=== PATIENT | female | born 1990 | race Caucasian/White ===

== ENCOUNTER 2018-12-31 09:55 | Emergency (ER) | payer MEDICAID, OTHER ==
[2018-12-31] MEDS ORDERED: MAG HYDROX/AL HYDROX/SIMETH SUSP 30 ML UDCUP PO ONE (11:53)
[2018-12-31] MEDS ORDERED: METOCLOPRAMIDE HCL ORAL SOLN 10 MG/10 ML UDCUP PO ONE (11:53)
[2018-12-31] MEDS ORDERED: LIDOCAINE 2% VISCOUS SOLN 20 ML UDCUP PO ONE (11:53)
--- NOTE | 2018-12-31 11:58 | ER Document Report ---
ED Cardiac - General Chief Complaint: Palpitations Stated Complaint: POSSIBLE HEART PALPITATIONS Time Seen by Provider: 12/31/18 11:00 Primary Care Provider: JEROD LESLIE NP [Primary Care Provider] - Follow up as needed Notes: Healthy 28-year-old female presents the emergency department with chief complaint of a left burning chest pain that started last night, left arm numbness, and left neck pain. Patient states that the symptoms have persisted and nothing makes them better or worse. Historically, patient would have a burning sensation in her chest and throat after eating before bed and laying flat but she did not eat anything last night prompting her concern. Patient denies any diaphoresis, denies any acute shortness of breath but complains of ongoing shortness of breath secondary to anxiety, denies any nausea or vomiting, denies recent illness. Father had a CABG at age 55. Patient is not a smoker and recently quit chewing nicotine gum 1 month ago. Patient recently started a new job that is high stress. TRAVEL OUTSIDE OF THE [place] IN LAST 30 DAYS: No - Related Data Allergies/Adverse Reactions: No Known Allergies Allergy (Verified 12/31/18 10:07) Past Medical History - Social History Smoking Status: Never Smoker Chew tobacco use (# tins/day): No Frequency of alcohol use: None Drug Abuse: None Family History: Reviewed & Not Pertinent Patient has suicidal ideation: No Patient has homicidal ideation: No Pulmonary Medical History: Reports: Hx Asthma Psychiatric Medical History: Reports: Hx Depression, Hx Personality Disorder - borderline Past Surgical History: Reports: Hx Section - x1, Hx Orthopedic Surgery - left miniscus - Immunizations Hx Diphtheria, Pertussis, Tetanus Vaccination: Yes Review of Systems - Review of Systems Constitutional: See HPI EENT: No symptoms reported Cardiovascular: See HPI Respiratory: See HPI Gastrointestinal: No symptoms reported Genitourinary: See HPI Female Genitourinary: No symptoms reported Musculoskeletal: No symptoms reported Skin: No symptoms reported Hematologic/Lymphatic: No symptoms reported Neurological/Psychological: See HPI Physical Exam - Vital signs Vitals: Temp Pulse Resp BP Pulse Ox 98.2 F 65 16 138/72 H 97 12/31/18 10:03 12/31/18 10:03 12/31/18 10:03 12/31/18 10:03 12/31/18 10:03 - Notes Notes: PHYSICAL EXAMINATION: Reviewed vital signs and charting by RN GENERAL: Alert, interacts well. No acute distress. HEAD: Normocephalic, atraumatic. EYES: Pupils equal and round. Extraocular movements intact. ENT: Oral mucosa moist, tongue midline. NECK: Full range of motion. Trachea midline. LUNGS: Clear to auscultation bilaterally, no wheezes, rales, or rhonchi. No re spiratory distress. HEART: Regular rate and rhythm. No murmur ABDOMEN: soft, non-tender. No distention. Bowel sounds present EXTREMITIES: Moves all 4 extremities spontaneously. No edema, No cyanosis. PSYCH: Normal affect, normal mood. SKIN: Warm, dry, normal turgor. No rashes or lesions noted. Course - Re-evaluation Re-evalutation: 12/31/18 14:01 Overall very well-appearing in no acute distress. Patient does have stressors t hat could be causing her symptoms. EKG showed normal sinus rhythm with a rate of [address] Smith. Lab work all within normal limits. Troponin negative. Heart score 0. I did give patient a GI cocktail and she reports her symptoms improved. I do strongly suspect that there is both an anxiety component and a reflux component to her symptoms. I explained to patient that she is extremely low risk for an adverse cardiac event in the next 30 days and she was reassured. No family history. At this time patient is stable for discharge with follow-up with primary in the next 24 to 48 hours. - Vital Signs Vital signs: Temp Pulse Resp BP Pulse Ox 98.2 F 65 16 138/72 H 97 12/31/18 10:03 12/31/18 10:03 12/31/18 10:03 12/31/18 10:03 12/31/18 10:03 - Laboratory Result Diagrams: 12/31/18 12:36 12/31/18 12:36 Discharge - Discharge Clinical Impression: Chest pain Qualifiers: Chest pain type: unspecified Qualified Code(s): R07.9 - Chest pain, unspecified Condition: Good Disposition: HOME, SELF-CARE Additional Instructions: You were seen today for chest pain. The exact cause of your pain is unclear. However, based on your cardiac enzyme testing and EKG it does not appear that it is from an immediately life-threatening cause at this time. Although your testing here is normal is critical that you follow-up with your primary care physician for continued evaluation of this chest pain and possible stress testing. I recommended you see your physician within the next 24-48 hours to be evaluated for consideration of a stress test. Please return to emergency department immediately if you have worsening of your chest pain, shortness of breath, vomiting, become unable to exert yourself due to pain or difficulty breathing, you pass out, or have any pain that radiates into your arms, jaw, or back. Please also return if you have any additional symptoms that are concerning to you. Referrals: JEROD LESLIE, [employer] [Primary Care Provider] - Follow up as needed
[2018-12-31 12:49] LABS: ABSOLUTE BASOPHILS # (AUTO) 0.1 10^3/uL (0.0-0.2); ABSOLUTE EOSINOPHILS # (AUTO) 0.2 10^3/uL (0.0-0.6); ABSOLUTE LYMPHOCYTES (AUTO) 2.1 10^3/uL (0.5-4.7); ABSOLUTE MONOCYTES (AUTO) 0.7 10^3/uL (0.1-1.4); ABSOLUTE NEUT (AUTO) 5.5 10^3/uL (1.7-8.2); BASOPHILS % (AUTO) 0.7 % (0-2); EOSINOPHILS % (AUTO) 2.4 % (0-6); HEMATOCRIT 39.8 % (36.0-47.0); HEMOGLOBIN 13.3 g/dL (12.0-15.5); LYMPHOCYTES % (AUTO) 25.1 % (13-45); MEAN CORPUSCULAR HEMOGLOBIN 28.6 pg (27.0-33.4); MEAN CORPUSCULAR HGB CONC 33.4 g/dL (32.0-36.0); MEAN CORPUSCULAR VOLUME 85 fl (80-97); PLATELET COUNT 284 10^3/uL (150-450); RED BLOOD COUNT 4.66 10^6/uL (3.72-5.28); RED CELL DISTRIBUTION WIDTH 13.2 % (11.5-14.0); SEGMENTED NEUTROPHILS % (AUTO) 63.8 % (42-78); TOTAL CELLS COUNTED % (AUTO) 100 %; WHITE BLOOD COUNT 8.6 10^3/uL (4.0-10.5)
[2018-12-31 13:20] LABS: ALBUMIN 4.1 g/dL (3.5-5.0); ALKALINE PHOSPHATASE 57 U/L (38-126); ANION GAP 7 (5-19); ASPARTATE AMINO TRANSFERASE 19 U/L (14-36); BILIRUBIN,TOTAL 0.3 mg/dL (0.2-1.3); BLOOD UREA NITROGEN 12 mg/dL (7-20); CALCIUM 9.5 mg/dL (8.4-10.2); CARBON DIOXIDE 27 mmol/L (22-30); CHLORIDE 104 mmol/L (98-107); GLUCOSE 93 mg/dL (75-110); POTASSIUM 4.4 mmol/L (3.6-5.0); TOTAL PROTEIN 6.9 g/dL (6.3-8.2)
[2018-12-31 14:20] VITALS: BP 132/72
--- NOTE | 2018-12-31 22:38 | EKG REPORT ---
SEVERITY:- NORMAL ECG - SINUS RHYTHM : Confirmed by: Denise Matthews MD 31-Dec-2018 22:37:37
== END 2018-12-31 14:18 | disposition home or self-care (01) ==
LOC: ER 09:55
DX: R07.9 Chest pain, unspecified (principal); R00.2 Palpitations; M54.2 Cervicalgia; R20.0 Anesthesia of skin
CPT/HCPCS: 93005; 36415; 84443; 85025; 80053; 84484; 93010; J3490; 99285